=== PATIENT | female | born 1955 | race Caucasian/White ===

== ENCOUNTER 2025-03-27 08:29 | Day surgery (SDC) | payer OTHER ==
[2025-03-24 11:23] LABS: Absolute Lymphocytes (CBC) 1.5 K/uL (0.7-4.9); Hematocrit 36.4 % (36.0-45.0); Hemoglobin 12.2 g/dL (12.0-15.0); MCH 31.7 pg (27.0-35.0); MCHC 33.6 g/dL (32.0-36.0); MCV 94.3 fL (80-100); MPV 7.2 fL (7.6-11.3); Nucleated RBC Absolute Count 0.0 (0-0); Nucleated Red Blood Cells % 0.1 % (0-0); RBC Red Blood Cell Count 3.86 M/uL (3.86-4.86); White Blood Count 11.70 thou/uL (4.3-10.9)
[2025-03-24 11:33] LABS: PT Prothrombin Time 12.7 SECONDS (10-13.0); PTT, Activated Partial Thromb 66.0 SECONDS (27.2-37.4); Protime INR 1.13
[2025-03-24 11:38] LABS: Anion Gap 7.6 mEq/L (5.0-15.0); BUN Blood Urea Nitrogen 11.0 mg/dL (7-18); Glucose Level 94.0 mg/dL (74-106); Potassium 3.6 mEq/L (3.5-5.1)
[2025-03-27] MEDS ORDERED: ONDANSETRON 4 MG/2 ML VIAL ONE (09:56)
[2025-03-27] MEDS ORDERED: MIDAZOLAM HCL 2 MG/2 ML INJ ONE (09:56)
[2025-03-27] MEDS ORDERED: FENTANYL CITR 100 MCG/2 ML ONE ×2 (09:56→11:48)
[2025-03-27] MEDS ORDERED: LIDOCAINE 2% MPF 5 ML VIAL ONE (09:57)
[2025-03-27] MEDS ORDERED: SUCCINYLCHOLINE 20 MG/ML (10 ML) IV ONE (10:20)
[2025-03-27] MEDS ORDERED: METHYLPREDNISOLONE 40 MG INJ ONE (10:42)
[2025-03-27] MEDS: CEFAZOLIN SODIUM 2 GM/VIAL ONE (10:50)
[2025-03-27] MEDS ORDERED: EPHEDRINE SULF 50 MG/ML VIAL ONE ×2 (11:17→11:42)
[2025-03-27] MEDS: LIDOCAINE HCL/EPINEPHRINE 20 ML MDV ONE (11:22)
[2025-03-27] MEDS ORDERED: NS 0.9% VIAL 10 ML ONE (11:50)
[2025-03-27] MEDS ORDERED: Phenylephrine HCl 10 MG/ML 1 ML VIAL ONE (11:50)
[2025-03-27] MEDS ORDERED: ALBUTEROL INHALER 200 PUFF/6.7 GM IH ONE (11:54)
[2025-03-27] MEDS ORDERED: NA CHLORIDE 0.9% 1,000 ML ONE (12:05)
[2025-03-27] MEDS: NA CHLORIDE 0.9% 1,000 ML ONE (12:08)
[2025-03-27] MEDS ORDERED: Mastisol Adhesive Liq ONE (12:23)
[2025-03-27 15:08] VITALS: BP 116/93; O2SAT 96
[2025-03-27 15:09] VITALS: TEMP 97
--- NOTE | 2025-03-27 17:30 | RAD REPORT ---
EXAM: Fluoroscopy use, Fluoroscopy <1 Hour HISTORY: SACRAL NEURO MOD REMOVAL AND REPLACEMENT COMPARISON: None FINDINGS: Multiple images were sent to PACS, during a fluoroscopically guided procedure. No radiologi st was involved in protocoling or performance of the study, and no radiologist was present for the duration of the procedure. No interpretation of the saved images will be provided. Total fluoroscopy time: 1.0 min. IMPRESSION: Documentation of fluoroscopy use as above. Transcribed Date/Time: 03/27/2025 5:30 PM
--- NOTE | 2025-04-01 23:49 | OP ---
Date of Procedure: 03/27/2025 Surgeon: Yue Talamantes MD [employer]: No assistants. Preoperative Diagnoses: 1. Urgency incontinence, fecal incontinence, and stress incontinence. 2. Failure of prior InterStim lead and implant to work after 4 days from insertion and placement of t he full InterStim system after the patient fell. Postoperative Diagnoses: 1. Urgency incontinence, fecal incontinence, and stress incontinence. 2. Failure of prior InterStim lead and implant to work after 4 days from insertion and placement of t he full InterStim system after the patient fell. Procedures Performed: 1. Removal of the existing right S3 lead. 2. Revision of the neuro modulator left buttock pocket to remove the original lead, insertion of a ne w right S3 lead under fluoroscopy and connection into the neuro modulator in the left buttock pocket and programming. 3. Fluoroscopic guidance used for needle placement and reimplantation of sacral nerve neuromodulator, urethral bulking, and cystoscopy. Complications: No complications. Drains: No drains. Findings: Right S3 lead was removed and another lead was placed on the same side. There was an exce llent response on leads I, II, and III with Shahida and plantar flexion of the great toe and on leads 0, no Shahida, only toe response. The lead position as confirmed on fluoroscopy was ideal and 1.6 m L of Bulkamid solution was used. Ebl: Minimal. Condition: The patient's condition is stable. Indications: The patient is a 69-year-old female with urgency incontinence, fecal incontinence, eval uated fully, had a successful office PNE, followed by full system implantation that was working effec tively. Postop day 4, she had a significant fall, landing on her bottom and reported that her respon se completely was lost sensation that she felt from the vaginal stem was completely lost as well. A pelvic x-ray was done. The lead position did not seem abnormal. There was no apparent lead fracture at the site of insertion into the neuromodulator head. Discussed about all the different options an d after checking the neuromodulator, no other discrepancy could be found and nothing else could be do ne in order for it to work. So, the patient wanted removal of implant and possible reinsertion if it was feasible when she had a very successful response both with office PNE testing as well as the ful l implant. After understanding the benefits and risks of it, we consented her for the same and then she had a stress incontinence, which was evaluated clinically as well as with urodynamics. She would be a candidate for urethral bulking. Her hypermobility was minimal. Description Of Procedure: After consenting her for this, she was brought to the hospital. She had m edical clearance. After re-consenting in the preoperative area, she was taken back to the OR. A 2 g of Ancef were given. General endotracheal anesthesia was given while she was on her bed. Then, she was repositioned on the OR bed in a prone position by the OR protocol. The first part of the proced ure was InterStim portion. The pillows were placed onto the lower abdomen to flatten the sacrum and onto the shins to allow the toes to dangle freely. The patient was then prepped with Betadine soluti on and draped in a sterile fashion. C-arm was draped and moved into position, and all the landmarks were imaged and after the surface markings were made, 1% lidocaine with epinephrine was injected at t he site of insertion and at the left buttock scar, where the neurostimulator was placed. There was no apparent fracture or abnormality on fluoroscopy. The position of the implant seemed unc hanged from the previous imaging. Removal and revision of the left buttock site: A 15 blade was used to make the incision dissected do wn to the pocket site. This was opened up and the header was removed. The examination of the lead i ncision side did not show any abnormalities. Hex wrench was used to free out and remove the lead fro m the header. The header was cleaned out and saved, reserved for the reincision at a later time in t he procedure. Gently tapping on the bucket pocket site, the lead incision site was identified, injected with 3 mL o f lidocaine with epi. A 5-10 mm incision eventually was made with an 11 blade. Dissection was vick ed down to identify the lead. The lead was then grasped and retrieved through the incision site and the first carrie was dissected all the way down by dissecting the tissues off the tip of a hemostat til l the sacrum was visualized. Then, once I reached the first carrie, gentle constant traction was used to remove the entire lead and this was removed intact without any problems with gentle traction. Thi s was handed out for discarding. A foraminal needle was then taken and inserted through the same incision site slightly lower, standin g up the needle. S3 was entered and the needle was tested. There was good response of Shahida and t oe, so after the needle position was confirmed fluoroscopically, the foraminal needle stylet was saran bertrand. Bidirectional guide was placed and confirmed fluoroscopically. The foraminal needle was then r emoved. Incision was made peripherally to the directional guide through the fascial layer. The lead introducer sheath and dilator were then placed over the directional guide and directed into the fora men and ensure the radiopaque marker did not extend beyond the anterior edge of the sacrum. The dila tor was unlocked, removed along with the directional guide, and the lead was then placed through the introducer sheath to the first of the white line. The position was then checked and adjusted appropr iately with fluoroscopy. The lead was then further introduced until 3 electrodes were visible below the sacrum. Each electrode was then tested. The electrode 0 had an excellent toe response and leads I, II, and III have both Shahida and toe. After removing the implant to re-adjustment of position, I continued to have the same response despite changing the direction. The original needle position w as ideal, so I took an AP and lateral view and since the position of the lead was optimal with good r esponse of the toe, I decided to leave the lead in place. Under continuous fluoroscopy, the introduc er sheath was retracted deploying the tines into the parasacral tissue. The tunneler was then used to pass through to the pocket and premade pocket sites. After removing th e tunneler through the plastic sheath, the lead was fed and retrieved out the pocket site. This was then cleaned up and inserted into the neurostimulator header until the blue tip was visualized at the end and then tightened with a hex wrench. It was gently inserted into the pocket site that was priyanka gisela. After programming head was placed over the implanted neurostimulator sterile cover to ensure ad equately connection that the parameters were within normal limits and impedances were confirmed. The n, the wound was irrigated with antibiotic solution and water, and closed with interrupted 3-0 Vicryl sutures in the subcutaneous plane and then subcuticular sutures with 4-0 Monocryl. Steri-Strips and bandages were placed here. Then, the same closure was done on the incision site at the sacrum and t he EBL was minimal. Once the final pictures were taken and saved, the patient was then flipped back onto her bed and then she was moved back onto the OR table in a supine fashion. The legs were positi oned in the dorsal lithotomy position. Vulva, vagina, and perineum were prepped and draped in a ster ile fashion with Betadine. A pediatric cystoscope was then taken, the sheath over it where the Bulka mid was fixed. Then, the flow was adjusted to a strong trickle. The sheath was introduced into the urethra. The needle with Bulkamid syringe attached to it and primed was inserted 2 cm past the inter nal meatus. Then, this was retrieved back in the mid urethra targeting 4-10 and 7 o'clock positions. Injections were done adequately in a symmetric fashion to obtain good apposition narrowing of the u rethral canal and once this was satisfactory, the scope was removed. A 12-Kittitian Gauthier was passed to drain the bladder. Then, the patient was recovered from anesthesia after the instrument, needle, an d sponge counts were correct. She was taken back to the PACU in stable condition. Family was de-ronald efed. Voiding trial before the patient left was ordered and programming parameters were entered into the chart. OCTAVIA Voice ID: [id number] Report ID: [id number]
== END 2025-03-27 14:37 | disposition home or self-care (01) ==
LOC: OR 08:29
PROVIDERS: ATTEND Obstetrics & Gynecology
PROC: 05W Upper Veins, Revision (ICD-10-PCS; principal; 2025-03-27 10:30)
DX: N39.46 Mixed incontinence (principal); R15.9 Full incontinence of feces; Z46.6 Encounter for fitting and adjustment of urinary device
CPT/HCPCS: 85025; 80048; 36415; 85610; 82947 ×2; 85730; 64585; A4216; J2704; J2371; J2003; J2250; J3010 ×2; J2405; J7030 ×2; J2919; C1778; L8606; J0330; 76000